=== PATIENT | female | born 2000 | race Caucasian/White ===

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

== ENCOUNTER → 2021-01-15 | Outpatient (REF) | payer OTHER, SELFPAY ==
[~2021-01-15] MED LIST: AMOX875T PO; CLIN150C17 PO; IBUP-1022 PO; LIDVISCBTL PO; OMEP-312 PO; PRED10TA2 PO
[2021-01-18 17:07] LABS: EBV AB TO NUCLEAR ANTIGEN 82.2 U/mL (0.0-17.9); EBV VIRAL CAPSID AG IgG >600.0 U/mL (0.0-17.9); EBV VIRAL CAPSID AG IgM 37.1 U/mL (0.0-35.9)
== END ==
LOC: M LAB REF 16:40
PROVIDERS: ATTEND Physician Assistant
DX: J03.90 Acute tonsillitis, unspecified (principal)

== ENCOUNTER 2021-12-06 05:22 | Emergency (ER) | payer BC, MEDICAID, OTHER, SELFPAY ==
[~2021-12-06] VITALS: Ht 157.5 cm; Wt 58.6 kg
[2021-12-06] MEDS ORDERED: ALTA1TAB3 PO (05:28)
[2021-12-06 07:55] LABS: BASO % 0.7 % (0.0-1.0); EOS # 0.1 10^3/uL (0.0-0.5); EOS % 1.2 % (0.0-3.0); HEMATOCRIT 40.2 % (36.0-47.0); HEMOGLOBIN 13.5 g/dl (12.0-15.5); MEAN CORPUSCULAR HEMOGLOBIN 30.2 pg (27.0-33.0); MEAN CORPUSCULAR HGB CONC 33.6 g/dl (32.0-36.5); MEAN CORPUSCULAR VOLUME 89.9 fl (80.0-96.0); MONO # 0.4 10^3/uL (0.0-0.8); MONO % 7.4 % (2.0-8.0); NEUTROPHILS # 3.2 10^3/uL (1.5-8.5); NEUTROPHILS % 55.5 % (36.0-66.0); PLATELET COUNT, AUTOMATED 240 10^3/uL (150-450); RED BLOOD COUNT 4.47 10^6/uL (4.00-5.40); WHITE BLOOD COUNT 5.8 10^3/uL (4.0-10.0)
[2021-12-06] MEDS ORDERED: PROMETHAZINE 25MG/ML 1ML VIAL IV ONE (07:55)
[2021-12-06] MEDS ORDERED: NS 1,000 ML IV ONE (07:55)
[2021-12-06 08:21] LABS: HCG, SERUM QUALITATIVE NEGATIVE (NEGATIVE)
[2021-12-06 08:25] LABS: RSV AMPLIFICATION NEGATIVE (NEGATIVE)
[2021-12-06 08:34] LABS: ALBUMIN 4.1 GM/DL (3.2-5.2); ALT/SGPT 24 U/L (12-78); AMYLASE 61 U/L (25-115); BILIRUBIN,DIRECT 0.2 MG/DL (0.0-0.2); BILIRUBIN,TOTAL 0.9 MG/DL (0.2-1.0); BLOOD UREA NITROGEN 9 MG/DL (7-18); CALCIUM LEVEL 9.4 MG/DL (8.5-10.1); CARBON DIOXIDE LEVEL 23 MEQ/L (21-32); CHLORIDE LEVEL 107 MEQ/L (98-107); CREATININE FOR GFR 0.75 MG/DL (0.55-1.30); GLUCOSE, FASTING 92 MG/DL (70-100); LIPASE 76 U/L (73-393); SODIUM LEVEL 136 MEQ/L (136-145)
[2021-12-06] MEDS ORDERED: PROM25TA12 PO (10:31)
[2021-12-06 10:46] VITALS: BP 116/69
== END 2021-12-06 10:50 | disposition home or self-care (01) ==
LOC: M ED 05:22
DX: R11.2 Nausea with vomiting, unspecified (principal); R19.7 Diarrhea, unspecified; R10.9 Unspecified abdominal pain; Z88.1 Allergy status to other antibiotic agents; Z88.2 Allergy status to sulfonamides; Z79.3 Long term (current) use of hormonal contraceptives
CPT/HCPCS: 74018; 80048; 80076; 82150; 83690; 84703; 85025; 87631; 96361; 96374; 99284; J2550

== ENCOUNTER → 2021-12-07 | Outpatient (REF) | payer OTHER ==
[~2021-12-07] MED LIST changes: +ALTA1TAB3 PO; +PROM25TA12 PO
== END ==
LOC: M LAB REF 10:46
PROVIDERS: ATTEND Physician Assistant Medical
DX: R19.7 Diarrhea, unspecified (principal)

== ENCOUNTER → 2022-05-22 | Outpatient (CLI) | payer OTHER ==
[2022-05-22 15:36] LABS: HEMATOCRIT 43.9 % (36.0-47.0); HEMOGLOBIN 14.5 g/dl (12.0-15.5); MEAN CORPUSCULAR HEMOGLOBIN 30.1 pg (27.0-33.0); MEAN CORPUSCULAR VOLUME 91.1 fl (80.0-96.0); PLATELET COUNT, AUTOMATED 259 10^3/uL (150-450); RED BLOOD COUNT 4.82 10^6/uL (4.00-5.40); WHITE BLOOD COUNT 7.3 10^3/uL (4.0-10.0)
[2022-05-22 15:48] LABS: INR 1.01; PROTHROMBIN TIME 13.5 SECONDS (12.5-14.5)
[2022-05-22 15:49] LABS: PARTIAL THROMBOPLASTIN TIME 25.6 SECONDS (24.8-34.2)
[2022-05-22 15:52] LABS: COLLAGEN EPINEPHRINE 170 SECONDS (74-162)
[2022-05-22 16:09] LABS: COLLAGEN ADP 90 SECONDS (56-103)
== END ==
LOC: M PLALAB 13:41
PROVIDERS: ATTEND Nurse Practitioner Family
DX: K92.1 Melena (principal)